=== PATIENT | female | born 1950 | race Caucasian/White ===

== ENCOUNTER → 2017-01-07 | Outpatient (CLI) | payer OTHER ==
[2017-01-07 13:23] LABS: BASOPHILS # (AUTO) 0.05 10*3/UL; BASOPHILS % (AUTO) 0.4 % (0-1); EOSINOPHILS % (AUTO) 0.6 % (0-8); HEMATOCRIT 46.3 % (37.0-47.0); HEMOGLOBIN 15.3 g/dL (12.0-16.0); IMM GRAN % (AUTO) 0.4 % (0-5); IMM GRAN# (AUTO) 0.05 10*3/UL; LYMPHOCYTES # (AUTO) 1.58 10*3/uL; LYMPHOCYTES % (AUTO) 11.4 % (10-50); MEAN CORPUSCULAR HEMOGLOBIN 28.3 PG (27-31); MEAN PLATELET VOLUME 8.7 FL (7.4-12.2); MONOCYTES # (AUTO) 0.81 10*3/UL (0.3-0.8); MONOCYTES % (AUTO) 5.8 % (5-15); NEUTROPHILS # (AUTO) 11.29 10*3/UL; NEUTROPHILS % (AUTO) 81.4 % (50-80); RDW COEFFICIENT OF VARIATION 14.7 % (11.5-14.5); RED BLOOD COUNT 5.41 10^6/uL (4.20-5.40); WHITE BLOOD COUNT 13.87 10^3/uL (4.8-10.8)
[2017-01-07 13:26] LABS: PLATELET MORPHOLOGY COMMENT NORMAL MORPHOLOGY (NORM)
[2017-01-07 13:28] LABS: BILIRUBIN,TOTAL 0.6 mg/dL (0.3-1.2); BUN/CREATININE RATIO 21.81 (6-20); CALCIUM 10.9 mg/dL (8.7-10.7); CREATININE 1.1 mg/dL (0.50-1.20); TOTAL PROTEIN 7.4 g/dL (6.1-8.0)
--- NOTE | 2017-01-07 14:49 | DI ---
CT ABDOMEN/PELVIS W/O CONTRAST,01/07/2017 1:06 PM: Clinical History: Left lower abdominal pain and flank pain. Previous Exam: None at this facility. Findings: Multiple helically acquired CT images are obtained through the abdomen and pelvis without contrast, a nd demonstrate a 5 mm stone within the left distal ureteropelvic junction causing severe left hydrone phrosis and hydroureter. There are a few punctate parenchymal calcifications involving the left kidne y as well. The adrenals, spleen and pancreas are unremarkable. The gallbladder is also unremarkable. There are a few sigmoid diverticula joint without evidence of acute diverticulitis. There are degenerative changes of the lumbar spine to include grade 1 anterolisthesis of L4 on L5 wit h some facet hypertrophy. Impression: 5 mm stone involving the left distal ureterovesicular junction causing severe left hydronephrosis and hydroureter.
== END ==
LOC: LAB 12:57
PROVIDERS: ATTEND Physician Assistant Medical
DX: R10.32 Left lower quadrant pain (principal); N13.2 Hydronephrosis with renal and ureteral calculous obstruction
CPT/HCPCS: 36415; 74176; 80053; 85025